=== PATIENT | female | born 1995 | race Caucasian/White ===

== ENCOUNTER 2018-12-18 15:14 | Emergency (ER) | payer OTHER, SELFPAY ==
[2018-12-18 15:27] VITALS: BP 108/77; PULSE 91; RESP 15; TEMP 36.9; O2SAT 100; BMI 29.8
--- NOTE | 2018-12-18 15:28 | ED.HA ---
HPI - Headache <CHARISSE Shin - Last Filed: 12/18/18 22:25> General Chief Complaint: Headache Stated Complaint: Extreme migraine Time Seen by Provider: 12/18/18 15:15 Source: patient Mode of arrival: ambulatory Limitations: no limitations History of Present Illness HPI Narrative: 23-year-old female with history of migraine headaches here for complaint of having migraine headache for the last couple of days. She reports typical migraine headache with nausea vomiting and photophobia. She currently takes propanolol to help with migraine headache she states that this is not been helpful for her headache over the last couple of days. She denies any stress relievers of her headache with exception of the photophobia. No fevers no chills. She denies any trauma to the head. No other concerns or complaints MD Complaint: migraine Related Data Allergies Allergy/AdvReac Type Severity Reaction Status Date / Time No Known Drug Allergies Allergy Verified 12/18/18 15:27 Review of Systems <CHARISSE Shin - Last Filed: 12/18/18 22:25> Constitutional Denies chills, Denies fever(s), Reports headache(s), Denies lethargy and Denies weakness Eyes Denies change in vision, Denies eye discharge, Denies irritation and Denies loss of vision ENT Ears, Nose, Mouth, and Throat: Denies change in voice, Reports headache(s), Denies neck pain, Denies sore throat and Denies throat swelling Cardiovascular Denies chest pain, Denies irregular heart rhythm, Denies lightheadedness, Denies palpitations and Denies orthopnea Respiratory Denies wheezing Gastrointestinal Gastrointestinal: Denies abdominal pain, Denies change in bowel habits, Denies diarrhea, Denies nausea and Denies vomiting Genitourinary Denies hematuria, Denies flank pain, Denies urinary incontinence and Denies urinary urgency Musculoskeletal Denies neck pain Integumentary/Breasts Denies pruritus, Denies erythema, Denies rash and Denies wounds Neurologic Denies confusion, Reports headache(s), Denies loss of vision and Denies weakness Psychiatric Denies anxiety, Denies confusion, Denies depression, Denies homicidal ideation and Denies suicidal ideation Endocrine Denies palpitations Allergic/Immunologic Denies urticaria, Denies throat swelling and Denies wheezing PFSH <CHARISSE Shin - Last Filed: 12/18/18 22:25> Social History Smoking Status: Unknown if ever smoked Social History Smoking Status: Unknown if ever smoked Exam <CHARISSE Shin - Last Filed: 12/18/18 22:25> Initial Vital Signs Initial Vital Signs: Vital Signs Temperature 98.5 F 12/18/18 15:27 Pulse Rate 91 H 12/18/18 15:27 Respiratory Rate 15 12/18/18 15:27 Blood Pressure 108/77 12/18/18 15:27 Pulse Oximetry 100 12/18/18 15:27 Const General: cooperative and well developed Nutritional Appearance: well nourished Orientation: alert, awake, oriented x3 and not confused HENMT Mouth: oral mucosae normal and moist mucous membranes Eyes Conjunctivae: conjunctivae normal Sclera: sclerae normal Pupils: PERRL EOM: EOM intact bilaterally Resp Effort & Inspection: normal respiratory effort, able to speak in complete sentences, no respiratory distress and no use of accessory muscles Auscultation: clear to auscultation bilaterally, no rales, no rhonchi and no wheezes Cardio Rate: regular rate Rhythm: regular rhythm Heart Sounds: no click, no gallops, no murmurs and no rubs Pulses: normal peripheral pulses Neuro General: alert, oriented x3, gait normal and no focal motor deficits Speech: speech normal <Perla Thompson DO - Last Filed: 12/19/18 09:53> Initial Vital Signs Initial Vital Signs: Vital Signs Temperature 98.5 F 12/18/18 15:27 Pulse Rate 91 H 12/18/18 15:27 Respiratory Rate 15 12/18/18 15:27 Blood Pressure 108/77 12/18/18 15:27 Pulse Oximetry 100 12/18/18 15:27 Course <CHARISSE Shin - Last Filed: 12/18/18 22:25> Orders Ordered: Discontinued Medications Diphenhydramine HCl (Benadryl) 25 mg IV NOW ONE Stop: 12/18/18 15:35 Last Admin: 12/18/18 16:24 Dose: 25 mg Sodium Chloride (Normal Saline 0.9%) 1,000 mls @ 1,000 mls/hr IV BOLUS ONE Stop: 12/18/18 16:33 Last Infusion: 12/18/18 17:20 Dose: 0 mls/hr Admin: 12/18/18 16:24 Dose: 1,000 mls/hr Ketorolac Tromethamine (Toradol) 30 mg IV NOW ONE Stop: 12/18/18 15:35 Last Admin: 12/18/18 16:24 Dose: 30 mg Prochlorperazine (Compazine) 10 mg IV NOW ONE Stop: 12/18/18 15:35 Last Admin: 12/18/18 16:25 Dose: 10 mg Vital Signs - 8 hr 12/18/18 15:27 12/18/18 16:00 12/18/18 16:25 Temperature 98.5 F Pulse Rate 91 H 76 78 Respiratory Rate 15 16 Blood Pressure 108/77 118/78 Blood Pressure [Left Arm] 118/73 Pulse Oximetry 100 99 12/18/18 17:00 12/18/18 17:32 Temperature Pulse Rate 81 76 Respiratory Rate 16 16 Blood Pressure 99/57 L Blood Pressure [Left Arm] 100/52 L Pulse Oximetry 99 99 <Perla Thompson DO - Last Filed: 12/19/18 09:53> Orders Ordered: Discontinued Medications Diphenhydramine HCl (Benadryl) 25 mg IV NOW ONE Stop: 12/18/18 15:35 Last Admin: 12/18/18 16:24 Dose: 25 mg Sodium Chloride (Normal Saline 0.9%) 1,000 mls @ 1,000 mls/hr IV BOLUS ONE Stop: 12/18/18 16:33 Last Infusion: 12/18/18 17:20 Dose: 0 mls/hr Admin: 12/18/18 16:24 Dose: 1,000 mls/hr Ketorolac Tromethamine (Toradol) 30 mg IV NOW ONE Stop: 12/18/18 15:35 Last Admin: 12/18/18 16:24 Dose: 30 mg Prochlorperazine (Compazine) 10 mg IV NOW ONE Stop: 12/18/18 15:35 Last Admin: 12/18/18 16:25 Dose: 10 mg Vital Signs - 8 hr 12/18/18 15:27 12/18/18 16:00 12/18/18 16:25 Temperature 98.5 F Pulse Rate 91 H 76 78 Respiratory Rate 15 16 Blood Pressure 108/77 118/78 Blood Pressure [Left Arm] 118/73 Pulse Oximetry 100 99 12/18/18 17:00 12/18/18 17:32 Temperature Pulse Rate 81 76 Respiratory Rate 16 16 Blood Pressure 99/57 L Blood Pressure [Left Arm] 100/52 L Pulse Oximetry 99 99 MDM - Headache <Reuben HollandCHARISSE - Last Filed: 12/18/18 22:25> [facility] Narrative Medical decision making narrative: Signs and symptoms presents as a migraine headache. She was given Toradol, Compazine and Benadryl in the emergency room along with fluids. She reports that she has decreased nausea at this time. Headache has transitioned from more in the head to behind the eyes. She is instructed to home to a quiet environment. Plenty of fluids and rest. Follow up with primary care provider in the next day or 2. Return emergency room for any worsening symptoms. Discharge Plan Departure Patient Disposition: Home Clinical Impression: Migraine Qualifiers: Migraine type: unspecified Status migrainosus presence: without status migrainosus Intractability: not intractable Qualified Code(s): G43.909 - Migraine, unspecified, not intractable, without status migrainosus Discharge Date/Time: 12/18/18 17:33 Interventions: ED Discharge Assessment Last Done: 12/18/18 17:32 Instructions: DI for Migraine Activity Restrictions/Additional Instructions: Migraine headache was treated with nausea medication and Toradol today. Home to a quiet environment. Plenty of fluids and rest. Follow up with primary care provider next day or 2. For any worsening symptoms return to the emergency room. Use [id number] Tylenol or Motrin as needed for any discomfort Referrals: Geovani Lindsay MD [Primary Care Provider] - <Perla Thompson DO - Last Filed: 12/19/18 09:53> Cosign ED Attending Sabinoature Attestation: I was immediately available in the department for consultation. Documentation has been reviewed. I agree with assessment and plan.
[2018-12-18 16:00] VITALS: BP 118/73; PULSE 76; RESP 16; O2SAT 99
[2018-12-18] MEDS: KETOROLAC 60 MG/2 ML VIAL 30 MG IV (16:24)
[2018-12-18] MEDS: SODIUM CHLORIDE 0.9% 1,000 ML 1000 ML IV (16:24)
[2018-12-18] MEDS: diphenhydrAMINE 50 MG/ML VIAL 25 MG IV (16:24)
[2018-12-18 16:25] VITALS: BP 118/78; PULSE 78
[2018-12-18] MEDS: PROCHLORPERAZINE 10 MG/2 ML VIAL IV (16:25)
[2018-12-18 17:00] VITALS: BP 100/52; PULSE 81; RESP 16; O2SAT 99
[2018-12-18 17:32] VITALS: BP 99/57; PULSE 76; RESP 16; O2SAT 99
== END 2018-12-18 17:33 | disposition home or self-care (01) ==
PROVIDERS: Emergency Provider Nurse Practitioner Family; PCP General Practice
DX: G43.909 Migraine, unspecified, not intractable, without status migrainosus (principal)
CPT/HCPCS: 36591; 96361; 96374; 96375; 99283; 99284; J0780; J1200; J1885